=== PATIENT | male | born 1985 | race Caucasian/White ===

== ENCOUNTER 2016-11-07 14:07 | Emergency (ER) | payer MEDICAID ==
[~2016-11-07] VITALS: Ht 180.3 cm; Wt 104.0 kg
[2016-11-07 19:14] VITALS: BP 144/88
== END 2016-11-07 19:14 | disposition home or self-care (01) ==
LOC: ED 14:07
DX: T62.8X1A Toxic effect of other specified noxious substances eaten as food, accidental (unintentional), initial encounter (principal); R42 Dizziness and giddiness; R51 Headache; Y92.89 Other specified places as the place of occurrence of the external cause
CPT/HCPCS: J2405